=== PATIENT | female | born 1940 | race Caucasian/White ===

== ENCOUNTER → 2016-12-18 | Outpatient (CLI) | payer MEDICARE, OTHER ==
[~2016-12-18] MED LIST: ASPIR 8181 MG PO; CLARITIN10 MG PO; ENSURE ORIGINA237 ML PO; FLAGYL500 MG PO; LEVAQUIN250 MG PO; MIRALAX17 GM PO; NEXIUM20 MG PO; TROSPIUM CHLORI60 MG PO
== END ==
LOC: CT 10:00
DX: R10.32 Left lower quadrant pain (principal); R93.3 Abnormal findings on diagnostic imaging of other parts of digestive tract
CPT/HCPCS: 36415; 82565; 84520; J7050; Q9965

== ENCOUNTER 2017-01-09 10:54 | Inpatient (IN) | payer MEDICARE, OTHER ==
[~2017-01-09] VITALS: Ht 162.6 cm; Wt 41.5 kg
[~2017-01-09 10:54] MED LIST changes: -ASPIR 8181 MG PO; -CLARITIN10 MG PO; -ENSURE ORIGINA237 ML PO; -FLAGYL500 MG PO; -LEVAQUIN250 MG PO; -MIRALAX17 GM PO; -TROSPIUM CHLORI60 MG PO
[2017-01-09 11:40] LABS: HEMOGLOBIN 10.5 gm/dl (12.3-15.3); RED BLOOD COUNT 3.37 M/UL (4.00-5.10); WHITE BLOOD COUNT 11.1 K/UL (4.5-11.0)
[2017-01-09] MEDS ORDERED: CLARITIN10 MG PO (22:31)
[2017-01-09] MEDS ORDERED: ASPIR 8181 MG PO (22:31)
[2017-01-09] MEDS ORDERED: TROSPIUM CHLORI60 MG PO (22:32)
[2017-01-10 05:53] LABS: HEMOGLOBIN 11.9 gm/dl (12.3-15.3); WHITE BLOOD COUNT 10.2 K/UL (4.5-11.0)
[2017-01-10 05:55] LABS: RED BLOOD COUNT 3.75 M/UL (4.00-5.10)
[2017-01-11 04:43] LABS: RED BLOOD COUNT 2.99 M/UL (4.00-5.10); WHITE BLOOD COUNT 5.9 K/UL (4.5-11.0)
[2017-01-11 04:46] LABS: HEMOGLOBIN 9.1 gm/dl (12.3-15.3)
[2017-01-12 06:35] LABS: HEMOGLOBIN 9.4 gm/dl (12.3-15.3); RED BLOOD COUNT 3.11 M/UL (4.00-5.10); WHITE BLOOD COUNT 5.2 K/UL (4.5-11.0)
[2017-01-14 04:52] LABS: HEMOGLOBIN 8.8 gm/dl (12.3-15.3); RED BLOOD COUNT 2.86 M/UL (4.00-5.10)
[2017-01-14 04:57] LABS: WHITE BLOOD COUNT 3.2 K/UL (4.5-11.0)
[2017-01-14 05:17] LABS: BUN/CREATININE RATIO 7 (0-10)
[2017-01-15 04:42] LABS: HEMOGLOBIN 9.1 gm/dl (12.3-15.3); RED BLOOD COUNT 3.02 M/UL (4.00-5.10); WHITE BLOOD COUNT 2.8 K/UL (4.5-11.0)
[2017-01-15 04:58] LABS: BUN/CREATININE RATIO 9 (0-10)
[2017-01-15] MEDS ORDERED: MIRALAX17 GM PO (17:34)
[2017-01-15] MEDS ORDERED: LEVAQUIN250 MG PO (17:34)
[2017-01-15] MEDS ORDERED: ENSURE ORIGINA237 ML PO (17:35)
[2017-01-15] MEDS ORDERED: FLAGYL500 MG PO (17:35)
== END 2017-01-15 18:58 | disposition home health service (06) | DRG 871 ==
LOC: ER1 10:54 → ZEROF 17:15 → MED SURG 4 17:15
PROVIDERS: Emergency Medicine; Hospitalist; Internal Medicine Gastroenterology; Physician Assistant; Student in an Organized Health Care Education/Training Program; ADMIT Internal Medicine
PROC: 0DB68ZX Excision of Stomach, Via Natural or Artificial Opening Endoscopic, Diagnostic (ICD-10-PCS; principal; 2017-01-15 18:15)
DX: A41.9 Sepsis, unspecified organism (principal); E43 Unspecified severe protein-calorie malnutrition; G93.41 Metabolic encephalopathy; A09 Infectious gastroenteritis and colitis, unspecified; N17.9 Acute kidney failure, unspecified; E87.2 Acidosis; Z68.1 Body mass index [BMI] 19.9 or less, adult; K31.7 Polyp of stomach and duodenum; K59.00 Constipation, unspecified; K21.0 Gastro-esophageal reflux disease with esophagitis; R13.10 Dysphagia, unspecified; Z88.0 Allergy status to penicillin; R50.9 Fever, unspecified; D64.9 Anemia, unspecified; E83.42 Hypomagnesemia; E87.6 Hypokalemia; I95.9 Hypotension, unspecified; M62.50 Muscle wasting and atrophy, not elsewhere classified, unspecified site; R53.1 Weakness; R53.81 Other malaise; N18.2 Chronic kidney disease, stage 2 (mild); Z88.2 Allergy status to sulfonamides; Z85.3 Personal history of malignant neoplasm of breast; Z90.11 Acquired absence of right breast and nipple; Z88.1 Allergy status to other antibiotic agents; Z79.82 Long term (current) use of aspirin; Z79.899 Other long term (current) drug therapy; Z80.3 Family history of malignant neoplasm of breast; Z80.0 Family history of malignant neoplasm of digestive organs; Z83.3 Family history of diabetes mellitus; Z91.018 Allergy to other foods
CPT/HCPCS: 36415; 51702; 71010; 71020; 74000; 80048; 80053; 80202; 81001; 82140; 82550; 82553; 82607; 82728; 82746; 82962; 83605; 83690; 83735; 83874; 84132; 84443; 84484; 85025; 85027; 85610; 85730; 86140; 87040; 87081; 87880; 93005; 96365; 96366; 96367; 96375; 97530; 99285; J0690; J1650; J1956; J2250; J3370; J7040; J7050; J7070

== ENCOUNTER 2017-01-28 14:04 | Inpatient (IN) | payer MEDICARE, OTHER ==
[~2017-01-28] VITALS: Ht 162.6 cm; Wt 42.9 kg
[~2017-01-28 14:04] MED LIST changes: +ASPIR 8181 MG PO; +CLARITIN10 MG PO; +ENSURE ORIGINA237 ML PO; +FLAGYL500 MG PO; +LEVAQUIN250 MG PO; +MIRALAX17 GM PO; +TROSPIUM CHLORI60 MG PO
[2017-01-28 14:56] LABS: HEMOGLOBIN 9.2 gm/dl (12.3-15.3); RED BLOOD COUNT 2.92 M/UL (4.00-5.10); WHITE BLOOD COUNT 10.5 K/UL (4.5-11.0)
[2017-01-28 15:30] LABS: BUN/CREATININE RATIO 21 (0-10)
[2017-01-30 04:56] LABS: HEMOGLOBIN 11.1 gm/dl (12.3-15.3)
[2017-01-30 05:11] LABS: RED BLOOD COUNT 3.54 M/UL (4.00-5.10); WHITE BLOOD COUNT 5.8 K/UL (4.5-11.0)
[2017-01-30 05:25] LABS: BUN/CREATININE RATIO 48 (0-10)
[2017-01-31 04:44] LABS: HEMOGLOBIN 12.7 gm/dl (12.3-15.3)
[2017-01-31 04:54] LABS: WHITE BLOOD COUNT 7.5 K/UL (4.5-11.0)
[2017-01-31 05:27] LABS: BUN/CREATININE RATIO 54 (0-10)
--- NOTE | 2017-01-31 10:59 | NUR ---
I WENT INTO PATIENT'S ROOM AT 0930, PT WAS BREATHING SHALLOW. WHEN I CHECKED HER O2 ON THE MONITOR IT WAS 88. I PUT HER ON 2 LITERS OF O2 ON NASAL CANNULA. HER O2 WENT BACK TO 91, I ASKED IF SHE FELT OK AND SHE SAID SHE FELT FINE. I CAME BACK IN TO CHECK ON HER AND SHE WAS BREATHING VERY SHALLOW WITH A HR OF 134. AT [address] LAND TO INFORM HIM OF VITALS. HE ORDERED STAT ABG AND STAT KUB. WHEN XRAY WAS IN THE ROOM GETTING THE KUB THE PATIENT BECAME VERY LETHARGIC. AT [address] LAND TO HAVE PATIENT SENT TO THE UNIT FOR RESPIRATORY DISTRESS. CODE BLUE WAS CALLED, BUT CPR WAS NEVER STARTED BECAUSE PATIENT WAS STILL BREATHING ON HER OWN AT 74%. SHE WAS BAGGED AT 100% BY RESPIRATORY THERAPIST PEYTON ALFARO UNTIL ER DOCTOR GOT INTO ROOM. 0956 NORMAL SALINE BOLUS STARTED PER DR QUIROS ORDER VITAL SIGNS BP 67/55, HR 113 0956 15 OF AMIDATE WAS PUSHED BY CEE HICKMAN RN 0957 PATIENT WAS INTUBATED AND SUCTIONED BY DR ARTHUR WITH ASSITANCE BY SRIRAM ESTEVES AND DESHAWN HALL,RT; WITH POSITIVE COLOR CHANGE 7 1/2 TUBE WITH A 22 AT THE LIP HELPING WITH THE ASSESSMENT OF PATIENT WAS DR. LAND, DR. QUIROS, AND DR. ARTHUR. 1003 MONITOR SHOWED SINUS TACHYCARIDA WITH HR OF 116 ASSESSED BY CEE HICKMAN RN EQUAL CLEAR LUNG SOUNDS, CHEST RISE AND FALL PATIENT WAS THEN TRANSFERRED TO UNIT.
[2017-01-31 11:27] LABS: HEMOGLOBIN 11.9 gm/dl (12.3-15.3); RED BLOOD COUNT 3.77 M/UL (4.00-5.10)
[2017-01-31 11:28] LABS: WHITE BLOOD COUNT 14.3 K/UL (4.5-11.0)
== END 2017-01-31 18:30 | disposition short-term general hospital (02) | DRG 388 ==
LOC: ER1 14:04 → MED SURG 4 20:20 → ZEROF 20:20 → MED SURG 4 01-29 01:36 → CCU 01-30 12:50
PROVIDERS: Family Medicine; Hospitalist; ADMIT Internal Medicine
PROC: 0BH17EZ Insertion of Endotracheal Airway into Trachea, Via Natural or Artificial Opening (ICD-10-PCS; principal; 2017-01-31)
PROC: 5A1935Z Respiratory Ventilation, Less than 24 Consecutive Hours (ICD-10-PCS; principal; 2017-01-31)
DX: K56.60 Unspecified intestinal obstruction (principal); J96.00 Acute respiratory failure, unspecified whether with hypoxia or hypercapnia; A41.9 Sepsis, unspecified organism; R65.21 Severe sepsis with septic shock; E87.2 Acidosis; N17.9 Acute kidney failure, unspecified; A04.7 Enterocolitis due to Clostridium difficile; K55.9 Vascular disorder of intestine, unspecified; Z68.1 Body mass index [BMI] 19.9 or less, adult; E44.0 Moderate protein-calorie malnutrition; K59.09 Other constipation; D53.9 Nutritional anemia, unspecified; E83.51 Hypocalcemia; K21.0 Gastro-esophageal reflux disease with esophagitis; R53.1 Weakness; N18.2 Chronic kidney disease, stage 2 (mild); Z88.2 Allergy status to sulfonamides; Z88.0 Allergy status to penicillin; Z88.1 Allergy status to other antibiotic agents; Z85.3 Personal history of malignant neoplasm of breast; Z90.10 Acquired absence of unspecified breast and nipple
CPT/HCPCS: 31500; 36415; 36600; 71010; 71250; 74000; 80048; 80053; 81001; 82550; 82553; 82803; 83605; 83615; 83735; 84165; 84484; 85025; 85027; 86039; 86140; 86403; 86431; 87040; 87086; 93005; 94002; 96361; 96374; 99285; G0378; J2185; J3243; J3370; J7030; J7050; Q9962